=== PATIENT | male | born 1960 ===

== ENCOUNTER → 2021-08-18 | Outpatient (CLI) | payer MEDICAID ==
[~2021-08-18] MED LIST: ALBUTEROL SULF 2.5 MG/0.5ML(0.5%) NEB SOLN ONE
== END | disposition home or self-care (01) ==
LOC: RT 10:46
PROVIDERS: ATTEND Internal Medicine Pulmonary Disease
DX: J44.9 Chronic obstructive pulmonary disease, unspecified (principal)
CPT/HCPCS: 94060